=== PATIENT | male | born 1960 | race Caucasian/White ===

== ENCOUNTER 2021-12-20 08:36 | Emergency (ER) | payer BC ==
[2021-12-20] MEDS ORDERED: Albuterol/Ipratropium 3.0-0.5 MG/3 ML Neb Soln NEB ONE ×2 (08:42→10:45)
[2021-12-20] MEDS ORDERED: Sodium Chloride 0.9% 10 ML Syringe FLUSH PRN (08:42)
[2021-12-20] MEDS ORDERED: methylPREDNISolone Sodium Succinate 125 MG/2 ML SDV IVPUSH ONE (08:44)
[2021-12-20 08:49] VITALS: BP 172/89; PULSE 89
[2021-12-20] MEDS ORDERED: Magnesium Sulfate/Water 2 GM in Premix Bag 1 BAG IV ONE (08:57)
[2021-12-20] MEDS ORDERED: diphenhydrAMINE 50 MG/ML SDV IVPUSH ONE (08:59)
[2021-12-20 09:37] LABS: TROPONIN I HIGH SENSITIVITY 81.7 pg/mL (<=60.3)
[2021-12-20 10:01] LABS: CORONAVIRUS COVID-19 NAA NEGATIVE (NEGATIVE)
== END 2021-12-20 11:47 | disposition home or self-care (01) ==
LOC: JP.ED 08:36
DX: J44.1 Chronic obstructive pulmonary disease with (acute) exacerbation (principal); R06.03 Acute respiratory distress; I10 Essential (primary) hypertension; Z20.822 Contact with and (suspected) exposure to COVID-19
CPT/HCPCS: 0241U; 36415; 36600; 71045; 80048; 82803; 83880; 84145; 84484; 85025; 85379; 93005; 93010; 94640; 96365; 96366; 96375; 99284; 99284-25; J1200; J2930; J3475; J7620

== ENCOUNTER 2024-12-16 07:27 | Emergency (ER) | payer BC ==
[2024-12-16] MEDS ORDERED: Albuterol/Ipratropium 3.0-0.5 MG/3 ML Neb Soln NEB ONE (07:32)
[2024-12-16] MEDS ORDERED: methylPREDNISolone Sodium Succinate 125 MG/2 ML SDV IM ONE (07:32)
[2024-12-16 07:44] LABS: BASE EXCESS VENOUS -3.6 mm/L; BASOPHILS ABSOLUTE AUTO 0.15 K/uL (0.00-0.10); BASOPHILS PERCENT AUTO 1.9 % (0.1-1.3); BICARBONATE,VENOUS 23.1 mmol/L; CARBOXYHEMOGLOBIN 1.6 % (0.0-1.6); EOSINOPHILS ABSOLUTE AUTO 1.42 K/uL (0.00-0.40); EOSINOPHILS PERCENT AUTO 17.6 % (0.0-5.4); HEMATOCRIT 42.8 % (38.4-49.7); HEMOGLOBIN 14.5 g/dL (12.9-16.9); IMMATURE GRAN PERCENT AUTO 0.2 % (0.0-0.7); LYMPHOCYTES ABSOLUTE AUTO 1.66 K/uL (0.8-3.3); LYMPHOCYTES PERCENT AUTO 20.5 % (11.4-47.7); MEAN CORPUSCULAR HEMOGLOBIN 33.1 pg (31.6-35.5); MEAN CORPUSCULAR HGB CONC 33.9 g/dL (31.6-35.5); MEAN CORPUSCULAR VOLUME 97.7 fL (81.4-99.0); METHEMOGLOBIN 0.7 %; MONOCYTES ABSOLUTE AUTO 0.62 K/uL (0.20-0.90); MONOCYTES PERCENT AUTO 7.7 % (3.3-12.6); NEUTROPHILS ABSOLUTE AUTO 4.22 K/uL (1.0-7.6); NEUTROPHILS PERCENT AUTO 52.1 % (40.0-78.1); O2 SATURATION VENOUS 70.2; OXYHEMOGLOBIN 68.6 %; PCO2 VENOUS 49.9 mm/Hg; PH,VENOUS 7.287 (7.350-7.450); PLATELET COUNT,PLT 270 K/uL (130-375); PO2 VENOUS 43.8 mm/Hg; RED BLOOD CELL COUNT 4.38 M/uL (4.14-5.76); WHITE BLOOD CELL COUNT,WBC 8.1 K/uL (3.2-11.0)
[2024-12-16 07:46] LABS: IMMATURE GRAN ABSOLUTE AUTO 0.02 K/uL (0.00-0.23)
[2024-12-16] MEDS: Albuterol/Ipratropium 3.0-0.5 MG/3 ML Neb Soln NEB ONE (07:58)
[2024-12-16] MEDS: Albuterol 0.083% 2.5 MG/3 ML Neb Soln NEB SCH (07:58)
[2024-12-16 08:02] LABS: PROTHROMBIN TIME 10.4 sec (9.2-10.6)
[2024-12-16] MEDS: Albuterol/Ipratropium 3.0-0.5 MG/3 ML Neb Soln ONE (08:06)
[2024-12-16 08:09] LABS: BLOOD UREA NITROGEN,BUN 10 mg/dL (7-18); CALCIUM 9.1 mg/dL (8.5-10.1); CARBON DIOXIDE,CO2 22 mmol/L (21-32); CHLORIDE,CL 104 mmol/L (100-108); CREATININE 1.1 mg/dL (0.8-1.3); ESTIMATED GFR 75 mL/min (>60); GLUCOSE RANDOM 151 mg/dL (74-106); POTASSIUM,K 4.4 mmol/L (3.6-5.2); SODIUM,NA 139 mmol/L (140-148)
[2024-12-16 08:16] LABS: ANION GAP 17.4 mmol/L (5.0-14.0)
[2024-12-16 08:17] LABS: TROPONIN I HIGH SENSITIVITY 80.7 pg/mL (<=60.3)
[2024-12-16] MEDS: Budesonide 0.5 MG/2 ML Neb Susp NEB ONE (08:19)
[2024-12-16 08:29] LABS: CORONAVIRUS COVID-19 NAA NEGATIVE (NEGATIVE); INFLUENZA A NAA NEGATIVE (NEGATIVE); INFLUENZA B NAA NEGATIVE (NEGATIVE); RESPIRATORY SYNCYTIAL VIR NAA NEGATIVE (NEGATIVE)
[2024-12-16] MEDS: Aspirin 81 MG Tab.Chew PO ONE (08:51)
[2024-12-16] MEDS: Sodium Chloride 0.9% 1,000 ML IV ONE ×2 (08:53→11:14)
[2024-12-16] MEDS: methylPREDNISolone Sodium Succinate 125 MG/2 ML SDV ONE (08:58)
[2024-12-16] MEDS: methylPREDNISolone Sodium Succinate 125 MG/2 ML SDV IV ONE (09:29)
[2024-12-16] MEDS: LORazepam 2 MG/ML SDV IVPUSH ONE (09:29)
[2024-12-16] MEDS: Sodium Chloride 0.9% 100 ML IV ONE (09:37)
[2024-12-16] MEDS: Iopamidol 755 Mg/ML 100 ML Bottle IV SCH (09:37)
[2024-12-16] MEDS: Sodium Chloride 0.9% 10 ML Syringe FLUSH PRN (09:37)
[2024-12-16] MEDS: Heparin Sodium 5,000 Units/ML Vial IV ONE (11:06)
[2024-12-16] MEDS: Heparin Sodium/D5W 25,000 UNITS/500 ML BAG IV SCH (11:06)
[2024-12-16] MEDS: Albuterol 0.083% 2.5 MG/3 ML Neb Soln NEB ONE (11:52)
[2024-12-16 12:31] VITALS: BP 140/89; PULSE 89
== END 2024-12-16 13:39 ==
LOC: JP.ED 07:27
DX: I21.4 Non-ST elevation (NSTEMI) myocardial infarction (principal); J44.9 Chronic obstructive pulmonary disease, unspecified
CPT/HCPCS: 0241U; 36415; 71045; 71275; 80048; 82803; 83605; 83880; 84484; 85025; 85610; 85730; 87040; 93005; 94640; 96365; 96366; 96375; 99291; 99292; A9270; J1644; J2060; J2919; J7030; J7613; J7620; Q9967; 93010